=== PATIENT | female | born 1975 | race Hispanic/Latino ===

== ENCOUNTER 2022-07-17 22:13 | Emergency (ER) | payer SELFPAY ==
[~2022-07-17] VITALS: Ht 175.3 cm; Wt 113.4 kg
[2022-07-17] MEDS ORDERED: SODIUM CHLORIDE 0.9% 1000ML 1,000 ML ONE (23:42)
[2022-07-17] MEDS ORDERED: ONDANSETRON HCL INJ 2MG/ML 2ML 2 MG/ML VIAL ONE (23:42)
[2022-07-17] MEDS ORDERED: IBUPROFEN 600 MG TAB ONE (23:42)
[2022-07-18] MEDS ORDERED: IOPAMIDOL 370 MG/ML 100 ML INFUS..BTL INJ ONE (00:34)
[2022-07-18] MEDS ORDERED: ONDANSETRON ODT4 MG PO (02:32)
[2022-07-18] MEDS ORDERED: DICYCLOMINE HCL20 MG PO (02:33)
== END 2022-07-18 02:30 | disposition home or self-care (01) ==
LOC: FSED 22:23
DX: R50.9 Fever, unspecified (principal); R10.30 Lower abdominal pain, unspecified; B34.9 Viral infection, unspecified; D27.1 Benign neoplasm of left ovary; R59.1 Generalized enlarged lymph nodes; J45.909 Unspecified asthma, uncomplicated; Z20.822 Contact with and (suspected) exposure to COVID-19
CPT/HCPCS: 71250; 74177; 80053; 81003; 82553; 84484; 85025; 85379; 99284; J2405; J7030; Q9967; U0002